=== PATIENT | male | born 1975 | race Caucasian/White ===

== ENCOUNTER → 2017-06-06 10:35 | Outpatient (CLI) | payer BC, SELFPAY ==
--- NOTE | 2017-06-06 10:43 | RAD_ITS ---
STUDY: X-RAY CHEST REASON FOR EXAM: Male, 42 years old. Cough for one month. TECHNIQUE: Frontal and lateral views of the chest. COMPARISON: None. FINDINGS: The lungs are clear and expanded. There is no demonstrated pleural abnormality. Normal size heart. Normal mediastinum and gautam. Normal visualized pulmonary arteries. Normal visualized aortic arch and descending thoracic aorta. Normal visualized thoracic spine. Normal visualized ribs, clavicles, and shoulders. There is no demonstrated abnormality of the visualized soft tissue structures of the upper abdomen. IMPRESSION: No acute pathology of the chest. Normal x-ray examination of the chest. Electronically Signed: Emerson Mason MD at 20:58 EDT , Service support , RAD/Chest PA and Lateral
== END ==
PROVIDERS: Family Provider Family Medicine; PCP Family Medicine; Visit Provider Family Medicine
DX: R05 Cough (principal)
CPT/HCPCS: 71046